=== PATIENT | male | born 1955 | race Caucasian/White ===

== ENCOUNTER 2016-05-01 06:47 | Day surgery (SDC) | payer BC ==
[2016-04-26 14:51] VITALS: BMI 36.9
[~2016-05-01 06:47] MED LIST: LACTATED RINGERS 1,000 ML IV SCH
[2016-05-01 07:02] VITALS: RESP 16; TEMP 98.1
[2016-05-01] MEDS ORDERED: LIDOCAINE 1% 20 ML VIAL (10MG/ML) FOR IV START INTRADERMA ONE (07:09)
--- NOTE | 2016-05-01 08:04 | P.GSHP ---
History of Present Illness H&P Date: 05/01/16 Chief Complaint: Screening colonoscopy This is a 60-year-old male referred from Dr. Arelis godfrey. Patient presents today for screening colonoscopy. He denies any significant GI complaints. - Constitutional Constitutional: Reports as per HPI Past Medical History Past Medical History: GERD/Reflux, Hypertension Additional Past Medical History / Comment(s): upper eye lashes growing into rt eye-following with Dr Dumont,hx wheezing at times History of Any Multi-Drug Resistant Organisms: None Reported Past Surgical History: Orthopedic Surgery Additional Past Surgical History / Comment(s): jay knee arthroscopy,jay carpel tunnel Past Anesthesia/Blood Transfusion Reactions: No Reported Reaction Additional Past Anesthesia/Blood Transfusion Reaction / Comment(s): no hx blood transfusion. Smoking Status: Current some day smoker Past Alcohol Use History: Occasional Additional Past Alcohol Use History / Comment(s): smokes cigars occas for 5-6 yrs,smoked cigarettes approx 20 yrs <1ppd Past Drug Use History: None Reported - Past Family History Mother Additional Family Medical History / Comment(s): heart problems Father History Unknown: Yes Sister(s) Family Medical History: Diabetes Mellitus Medications and Allergies Home Medications Medication Instructions Recorded Confirmed Type Aspirin 81 mg PO DAILY 04/26/16 05/01/16 History Budesonide-Formot 160-4.5 Mcg 2 puff INHALATION BID PRN 04/26/16 05/01/16 History [Symbicort 160-4.5 Mcg Inhaler] Furosemide [Lasix] 40 mg PO BID 04/26/16 05/01/16 History Ibuprofen [Motrin] 800 mg PO Q8H PRN 04/26/16 05/01/16 History Lisinopril 40 mg PO QAM 04/26/16 05/01/16 History Omeprazole [PriLOSEC] 20 mg PO HS 04/26/16 05/01/16 History Terazosin HCl 5 mg PO HS 04/26/16 05/01/16 History Tobramycin 0.3% Ophth Oint [Tobrex 1 applic RIGHT EYE BID 04/26/16 05/01/16 History 0.3% Ophth Oint] Allergies Allergy/AdvReac Type Severity Reaction Status Date / Time No Known Allergies Allergy Verified 04/26/16 14:36 Surgical - Exam Vital Signs Temp Pulse Resp BP Pulse Ox 98.1 F 89 16 171/103 96 05/01/16 06:58 05/01/16 06:58 05/01/16 06:58 05/01/16 06:58 05/01/16 06:58 - General well developed, no distress - Eyes PERRL - ENT normal pinna - Neck no masses - Respiratory normal expansion - Cardiovascular Rhythm: regular - Abdomen Abdomen: soft, non tender Assessment and Plan Plan: We'll perform screening colonoscopy.
[2016-05-01] MEDS ORDERED: PROPOFOL 10 MG/ML 20 ML VIAL IV ONE (08:10)
[2016-05-01] MEDS ORDERED: LIDOCAINE 1% INJ 10MG/ML (20 ML MDV) ONE (08:10)
--- NOTE | 2016-05-01 08:25 | P.OP ---
Date of Procedure: 05/01/16 Preoperative Diagnosis: Screening colonoscopy Postoperative Diagnosis: Normal colon Procedure(s) Performed: Colonoscopy Anesthesia: MAC Surgeon: Jf Beltran Pathology: none sent Condition: stable Disposition: PACU Description of Procedure: PROCEDURE: The patient was placed on the endoscopy table in the lateral position. Digital rectal examination was performed which revealed no abnormalities. The prostate was symmetrical without nodules. Flexible colonoscope was then placed in the patient's anus and passed throughout the entire colon. The ileocecal valve was visualized. The cecum, ascending, transverse, descending and sigmoid colon were normal. The rectum was normal as well. There were no masses, polyps or diverticula noted in the entire colon. SUMMARY OF FINDINGS: Normal colonoscopy.
[2016-05-01 09:11] VITALS: BP 131/90; PULSE 78
== END 2016-05-01 09:28 | disposition home or self-care (01) ==
LOC: ORWHC2ENDO 06:47
PROVIDERS: ATTEND Surgery
DX: Z12.11 Encounter for screening for malignant neoplasm of colon (principal); I10 Essential (primary) hypertension; K21.9 Gastro-esophageal reflux disease without esophagitis; J45.909 Unspecified asthma, uncomplicated; F17.210 Nicotine dependence, cigarettes, uncomplicated; Z79.82 Long term (current) use of aspirin; Z79.51 Long term (current) use of inhaled steroids; Z79.899 Other long term (current) drug therapy
CPT/HCPCS: 45378; J2001; J2704; 99153

== ENCOUNTER → 2021-03-20 | Outpatient (CLI) | payer BC ==
--- NOTE | 2021-03-20 12:09 | P.STRESS ---
- Stress Test Note Stress Test Results/Findings: Exam Performed: NM stress cardiolite complete Exam Date: 03/20/21 Reason for Exam: CHEST PAIN Height: 5 ft 10 in Weight: 120.5 kg Protocol: NICOLE JEAN MARIE Stage: 2 Duration of Exercise: 6:00 Resting Heart Rate: 83 Resting Blood Pressure: 147/96 Maximum Achieved Heart Rate: 147 Maximum Achieved Blood Pressure: 204/60 85% PMHR: 133 100% PMHR: 156 METS: 7.1 Technologist Comment: Stress Test Results/Findings: Patient underwent exercise stress Cardiolite with a Jean Marie protocol treadmill stress test. Patient exercised into Stage 2 for a total of 6 minutes reaching a total of 7.1 METS. Patient's maximum heart rate was 147 which represented 94% age-predicted maximum heart rate. Stress EKG findings: At baseline patient's EKG showed sinus rhythm, normal axis, no significant ST or T wave abnormalities. At peak exercise, EKG showed nondiagnostic 0.[address] depressions in the inferolateral leads. Conclusions: 1. Normal EKG response to exercise without evidence of inducible ischemia. 2. Fair exercise capacity. 3. Nuclear portion to be reported separately.
--- NOTE | 2021-03-20 12:53 | NM ---
EXAMINATION TYPE: NM stress cardiolite complete DATE OF EXAM: 03/20/2021 COMPARISON: NONE HISTORY: R06.00 Dyspnea R07.2 Substernal chest pain TECHNIQUE: After the intravenous administration of 9.9 mCi Tc 99m Sestamibi - Rest images obtained 4 5 minutes post injection. The patient exercised using a JEAN MARIE protocol and 1 minute prior to peak e xercise was injected with 27.1 mCi Tc 99m Sestamibi - Stress images obtained 15 minutes post injectio n. FINDINGS: Targeted heart rate was achieved during performance of the study, patient achieved 94% of predicted m aximal heart rate. Review of stress and rest SPECT images demonstrates decreased uptake along the inf erior wall and inferolateral aspect left ventricle on stress as compared to rest images suggesting de creased uptake also noted along the anteroseptal left ventricle on stress as compared to rest images. Gated analysis shows normal wall motion with an estimated left ventricular ejection fraction of 61 %. IMPRESSION: Stress-induced left ventricular myocardial ischemia is suspected A Yellow level critical message alert has been initiated for Arelis Vaughan DO via the [employer] Critical Results System on 03/20/2021 12:50 PM. This message alert has been sent to Arelis Vaughan DO via the preferences provided by the clinician for the receipt of Radiology Critical Findings. Message ID [id number].
== END | disposition home or self-care (01) ==
LOC: RADNMMAIN 08:56
PROVIDERS: ATTEND Family Medicine
DX: R06.00 Dyspnea, unspecified (principal); R07.2 Precordial pain
CPT/HCPCS: 93017; 78452; A9500

== ENCOUNTER 2021-04-11 09:18 | Day surgery (SDC) | payer BC ==
[2021-04-05 11:57] VITALS: BMI 40.8
[~2021-04-11 09:18] MED LIST changes: +ALPRAZolam 0.25 MG TAB PO PRN; +ALPRAZolam 0.5 MG TAB PO PRN; +ASPIRIN 325 MG TAB PO STA; +ATORVASTATIN 80 MG TAB PO STA; -LACTATED RINGERS 1,000 ML IV SCH; +NITROGLYCERIN SL TABS 0.4 MG TAB SUBLINGUAL PRN; +SODIUM CHLORIDE 0.9% 1,000 ML in EMPTY BAG 1 BAG IV SCH
[2021-04-11] MEDS ORDERED: SODIUM CHLORIDE 0.9% 1,000 ML IV ONE (09:33)
[2021-04-11] MEDS ORDERED: ASPIRIN 81 MG ONE (09:41)
[2021-04-11 09:46] VITALS: RESP 16; TEMP 98.8
[2021-04-11 09:50] LABS: Glucose,Whole Blood 108 mg/dL (75-99)
[2021-04-11] MEDS ORDERED: MIDAZOLAM 2 MG/2 ML VIAL IV ONE (10:27)
[2021-04-11] MEDS ORDERED: LIDOCAINE 1% INJ 10MG/ML (20 ML MDV) SQ ONE (10:30)
[2021-04-11] MEDS ORDERED: HEPARIN SODIUM 1,000 UN/ML (10ML VL) ONE (10:31)
[2021-04-11] MEDS ORDERED: VERAPAMIL SYRINGE (5 MG/10 ML) INTRAARTER ONE (10:32)
[2021-04-11] MEDS ORDERED: IOPAMIDOL-370 125ML BTL INJ ONE (10:42)
--- NOTE | 2021-04-11 10:55 | P.PCN ---
Date of Procedure: 04/11/21 Operative Findings: CARDIAC CATHETERIZATION PERFORMING PHYSICIAN: Gualberto Corcoran MD, RPVI PROCEDURE PERFORMED: 1. Selective right and left coronary angiogram 2. Left heart catheterization INDICATION: This is a 65-year-old gentleman with diabetes and hypertension and dyslipidemia was experiencing symptoms of chest discomfort. He underwent myocardial perfusion imaging stress test and that came in to be abnormal showing reversibility. In the light of that heart catheterization was advised COMPLICATION: None APPROACH: Right radial artery LEVEL OF SEDATION: Moderate with a sedation length of 17 minutes PROCEDURE DESCRIPTION: After obtaining an informed consent, the patient was brought to cardiac corn lab technician. Local anesthesia was performed using lidocaine subcutaneously. The right radial artery was cannulated using Seldinger technique, the guidewire passed easily, following that we advanced a 5-Malagasy sheath dilator assembly, the wire and dilator were removed and sheath was flushed. Following that, 2 mg of verapamil along with 5000 unit heparin were given. Selective right and left coronary angiogram using a 6-Malagasy JR4 and JL 3.5 catheters. Following that we did left heart catheterization using 6-Malagasy pigtail cathet er. The procedure was completed there was no complication. SELECTIVE CORONARY ANGIOGRAM: The right coronary artery: Is a large caliber vessel and a dominant vessel. Its angiographically normal. Distally bifurcates into PDA and PLV branches. Appears to be angiographically normal Left main: Is angiographically normal. Bifurcates into LCx facility The left circumflex: Is a large caliber vessel. Its angiographically normal. It gives rises into a large OM branch which appeared to be angiographically normal. The left anterior descending artery: It is angiographically normal and gives rises into a large diagonal branch which seems to be angiographically normal. HEMODYNAMICS: The LVEDP was about 10-12 mmHg without significant gradient across aortic valve CONCLUSION: 1. Normal coronary angiogram 2. Normal LVEDP POSTPROCEDURE MANAGEMENT: Medical treatment and follow-up with the patient
[2021-04-11 16:21] VITALS: BP 135/87; PULSE 75
== END 2021-04-11 15:05 | disposition home or self-care (01) ==
LOC: CATHCVL 09:18
PROVIDERS: ATTEND Internal Medicine Interventional Cardiology
DX: R07.89 Other chest pain (principal); R94.39 Abnormal result of other cardiovascular function study; E66.9 Obesity, unspecified; Z68.41 Body mass index [BMI] 40.0-44.9, adult; I10 Essential (primary) hypertension; E78.5 Hyperlipidemia, unspecified; Z20.822 Contact with and (suspected) exposure to COVID-19; Z82.49 Family history of ischemic heart disease and other diseases of the circulatory system; E11.9 Type 2 diabetes mellitus without complications; F17.210 Nicotine dependence, cigarettes, uncomplicated; Z79.84 Long term (current) use of oral hypoglycemic drugs; Z79.82 Long term (current) use of aspirin; Z79.51 Long term (current) use of inhaled steroids; Z79.899 Other long term (current) drug therapy
CPT/HCPCS: 93458; 87635; C1769; C1894; J2250; J2001; J1644; Q9967

== ENCOUNTER → 2021-10-06 | Outpatient (CLI) | payer MEDICARE ==
[2021-10-06 10:10] LABS: INR 0.9 (<1.2); Partial Thromboplastin Time 26.7 sec (22.0-30.0); Prothrombin Time 10.3 sec (9.0-12.0)
[2021-10-06 14:37] LABS: HCT 45.7 % (39.6-50.0); HGB 14.8 g/dL (13.0-17.0); MCH 29.7 pg (27.0-32.0); MCHC 32.4 g/dL (32.0-37.0); MCV 91.6 fL (80.0-97.0); Mean Platelet Volume 12.6 fL (9.5-12.2); NRBC Per 100 WBC 0 /100 WBCS (0.0-0.0); Platelet Count 146 X 10*3/uL (140-440); RBC 4.99 X 10*6/uL (4.40-5.60); RDW 12.9 % (11.5-14.5); WBC 7.16 X 10*3/uL (4.50-10.00)
[2021-10-06 15:52] LABS: African American GFR (CKD) 98.3 (60.0-200.0); Albumin 4.3 g/dL (3.8-4.9); Albumin/Globulin Ratio 1.51 (1.60-3.17); Anion Gap 8.3 mmol/L (10.00-18.00); BUN/Creat Ratio 13.44 Ratio (12.00-20.00); Blood Urea Nitrogen 12.7 mg/dL (9.0-27.0); Calcium 9.7 mg/dL (8.7-10.3); Carbon Dioxide 30.7 mmol/L (20.0-27.5); Globulin 2.8 g/dL (1.6-3.3); Non-African American GFR(CKD) 84.8 (60.0-200.0); Total Bilirubin 0.4 mg/dL (0.30-1.20); Total Protein 7.1 g/dL (6.2-8.2)
== END | disposition home or self-care (01) ==
LOC: LABWHC1 08:49
PROVIDERS: ATTEND Orthopaedic Surgery Sports Medicine
DX: Z01.812 Encounter for preprocedural laboratory examination (principal); M17.12 Unilateral primary osteoarthritis, left knee
CPT/HCPCS: 36415; 80053; 85027; 85610; 85730

== ENCOUNTER → 2021-10-09 | Outpatient (CLI) | payer MEDICARE ==
[2021-10-09 14:38] LABS: Appearance,Urine Clear (Clear); Bilirubin,Urine Negative (Negative); Blood,Urine Negative (Negative); Color,Urine Yellow (Yellow); Ketones,Urine Negative (Negative); Nitrite,Urine Negative (Negative); Specific Gravity,Urine 1.007 (1.001-1.030); Urobilinogen,Urine 0.2 (0.2,1.0)
== END | disposition home or self-care (01) ==
LOC: LABPAT 09:42
PROVIDERS: ATTEND Orthopaedic Surgery Sports Medicine
DX: Z01.812 Encounter for preprocedural laboratory examination (principal); M17.12 Unilateral primary osteoarthritis, left knee
CPT/HCPCS: 81003; 87070

== ENCOUNTER → 2022-03-19 | Outpatient (CLI) | payer MEDICARE ==
[2022-03-19 10:07] LABS: Appearance,Urine Clear (Clear); Bilirubin,Urine Negative (Negative); Blood,Urine Negative (Negative); Color,Urine Yellow; Glucose,Urine (UA) Negative (Negative); Ketones,Urine Negative (Negative); Leukocyte Esterase,Urine Negative (Negative); Nitrite,Urine Negative (Negative); Protein,Urine Trace (Negative); Urobilinogen,Urine <2.0 mg/dL (<2.0)
[2022-03-19 10:11] LABS: INR 0.9 (<1.2); Partial Thromboplastin Time 25.8 sec (22.0-30.0); Prothrombin Time 10.1 sec (9.0-12.0)
[2022-03-19 14:31] LABS: HCT 45.2 % (39.6-50.0); HGB 14.5 g/dL (13.0-17.0); MCH 29.7 pg (27.0-32.0); MCHC 32.1 g/dL (32.0-37.0); MCV 92.6 fL (80.0-97.0); Mean Platelet Volume 12.2 fL (9.5-12.2); NRBC Per 100 WBC 0 /100 WBCS (0.0-0.0); Platelet Count 149 X 10*3/uL (140-440); RBC 4.88 X 10*6/uL (4.40-5.60); RDW 12.3 % (11.5-14.5); WBC 6.92 X 10*3/uL (4.50-10.00)
[2022-03-19 14:43] LABS: African American GFR (CKD) 102.3 (60.0-200.0); Albumin 4.2 g/dL (3.8-4.9); Albumin/Globulin Ratio 1.94 (1.60-3.17); Anion Gap 9.1 mmol/L (10.00-18.00); BUN/Creat Ratio 10.22 Ratio (12.00-20.00); Blood Urea Nitrogen 9.3 mg/dL (9.0-27.0); Calcium 9.5 mg/dL (8.7-10.3); Carbon Dioxide 31.1 mmol/L (20.0-27.5); Globulin 2.2 g/dL (1.6-3.3); Non-African American GFR(CKD) 88.3 (60.0-200.0); Potassium 4.4 mmol/L (3.5-5.5); Total Bilirubin 0.5 mg/dL (0.30-1.20); Total Protein 6.3 g/dL (6.2-8.2)
== END ==
LOC: LABWHC1 08:44
PROVIDERS: ATTEND Orthopaedic Surgery Sports Medicine
DX: Z01.812 Encounter for preprocedural laboratory examination (principal); M17.11 Unilateral primary osteoarthritis, right knee
CPT/HCPCS: 36415; 80053; 81003; 85027; 85610; 85730; 87070; 93005

== ENCOUNTER 2022-04-12 05:42 | Day surgery (SDC) | payer MEDICARE ==
[2022-04-06 12:01] VITALS: BMI 39.9
[~2022-04-12 05:42] MED LIST changes: +ACETAMINOPHEN TAB 500 MG TAB PO PRN; -ALPRAZolam 0.25 MG TAB PO PRN; -ALPRAZolam 0.5 MG TAB PO PRN; -ASPIRIN 325 MG TAB PO STA; -ATORVASTATIN 80 MG TAB PO STA; +GABAPENTIN 300 MG CAP PO PRN; +MELOXICAM 7.5 MG TAB PO PRN; -NITROGLYCERIN SL TABS 0.4 MG TAB SUBLINGUAL PRN; +ONDANSETRON 4 MG/2 ML VIAL IVP PRN; -SODIUM CHLORIDE 0.9% 1,000 ML in EMPTY BAG 1 BAG IV SCH; +TRANEXAMIC ACID IN NACL,ISO-OS 1,000 MG in SALINE 1 100ML.BAG IVPB PRN; +ceFAZolin 3 GM in SODIUM CHLORIDE 0.9% 100 ML IVPB PRN
[2022-04-12] MEDS ORDERED: MIDAZOLAM 2 MG/2 ML VIAL IV PRN (05:56)
[2022-04-12] MEDS: LACTATED RINGERS 1,000 ML IV SCH ×3 (05:59→15:32)
[2022-04-12 06:22] LABS: Glucose,Whole Blood 114 mg/dL (70-110)
[2022-04-12] MEDS ORDERED: MIDAZOLAM 2 MG/2 ML VIAL IVP ONE (06:47)
[2022-04-12] MEDS ORDERED: DEXAMETHASONE SOD PHOSPHATE 4 MG/ML 1 ML VIAL ONE (07:07)
[2022-04-12] MEDS ORDERED: PROPOFOL 10 MG/ML 20 ML VIAL IV ONE (07:07)
[2022-04-12] MEDS ORDERED: ePHEDrine 50 MG/ML 1 ML VIAL ONE (07:07)
[2022-04-12] MEDS ORDERED: KETAMINE 10 MG/ML 20 ML VIAL ONE (07:07)
[2022-04-12] MEDS ORDERED: TRANEXAMIC ACID IN NACL,ISO-OS 1,000 MG/100 ML BAG ONE (07:07)
[2022-04-12] MEDS ORDERED: ROPIVACAINE 5 MG/ML 30 ML VIAL ONE (07:07)
[2022-04-12] MEDS ORDERED: SUCCINYLCHOLINE CHLORIDE 200 MG/10 ML VIAL IV ONE (07:07)
[2022-04-12] MEDS ORDERED: LIDOCAINE 2% INJ 20 MG/ML (2 ML VIAL) ONE (07:07)
[2022-04-12] MEDS ORDERED: fentaNYL (PF) 50 MCG/ML 2 ML AMP ONE (07:07)
[2022-04-12] MEDS ORDERED: MIDAZOLAM 2 MG/2 ML VIAL ONE (07:07)
[2022-04-12] MEDS ORDERED: DEXAMETHASONE SOD PHOSPHATE 4 MG/ML 1 ML VIAL IVP ONE (07:09)
[2022-04-12] MEDS ORDERED: ACETAMINOPHEN TAB 325 MG TAB PO PRN (07:18)
[2022-04-12] MEDS ORDERED: NA PHOS,M-B/NA PHOS,DI-BA 133 ML ENEMA RECTAL PRN (07:18)
[2022-04-12] MEDS ORDERED: NALOXONE 0.4 MG/ML 1 ML VIAL IV PRN ×2 (07:18→07:58)
[2022-04-12] MEDS ORDERED: MAGNESIUM HYDROXIDE 2,400 MG/10 ML CUP PO PRN (07:18)
[2022-04-12] MEDS ORDERED: bisacodyL 10 MG SUPP RECTAL PRN (07:18)
[2022-04-12] MEDS ORDERED: HYDROmorphone 0.5 MG/0.5 ML SYRINGE IVP PRN ×3 (07:18)
[2022-04-12] MEDS ORDERED: diazePAM 5 MG TAB PO PRN (07:18)
[2022-04-12] MEDS ORDERED: TEMAZEPAM 15 MG CAP PO PRN (07:18)
[2022-04-12] MEDS ORDERED: ONDANSETRON 4 MG/2 ML VIAL IVP PRN (07:18)
[2022-04-12] MEDS ORDERED: traMADol 50 MG TAB PO PRN (07:18)
[2022-04-12] MEDS ORDERED: HYDROcodone/APAP 7.5-325MG 1 EACH TAB PO PRN (07:21)
[2022-04-12] MEDS ORDERED: ceFAZolin 1,000 MG in SODIUM CHLORIDE 0.9% 1,000 ML IRRIGATION ONE (07:50)
--- NOTE | 2022-04-12 07:58 | P.ANPRN ---
Procedure Note - Anesthesia - Nerve Block Performed Right Adductor Canal Infusion Time Out Performed: Yes Date of Procedure: 04/12/22 Procedure Start Time: 06:46 Procedure Stop Time: 06:54 Location of Patient: PreOp Indication: Acute Post-Operative Pain, Requested by Surgeon Sedation Type: Sedate with meaningful contact maintained Preparation: Sterile Prep, Sterile Dressing Position: Supine Catheter: Indwelling Needle Types: Mateus Needle Gauge: 18 Ultrasound used to visualize needle placement: Yes Ultrasound used to observe medication spread: Yes Injectate: 0.5% Ropivacaine (see comment for volume) (20 ml + decadron 4 mg) Blood Aspirated: No Pain Paresthesia on Injection Noted: No Resistance on Injection: Normal Image Stored and Saved: Yes Events: Uneventful and Well Tolerated Right iPack Single Time Out Performed: Yes Date of Procedure: 04/12/22 Procedure Start Time: 06:55 Location of Patient: PreOp Indication: Acute Post-Operative Pain, Requested by Surgeon Sedation Type: Sedate with meaningful contact maintained Preparation: Sterile Prep, Sterile Dressing Position: Left Lateral Catheter: None Needle Types: Facet Needle Gauge: 20 Ultrasound used to visualize needle placement: Yes Ultrasound used to observe medication spread: Yes Injectate: 0.5% Ropivacaine (see comment for volume) (10 ml + decadron 4 mg) Blood Aspirated: No Pain Paresthesia on Injection Noted: No Resistance on Injection: Normal Image Stored and Saved: Yes Events: Uneventful and Well Tolerated
[2022-04-12] MEDS ORDERED: LACTATED RINGERS 1,000 ML IV ONE (08:07)
[2022-04-12] MEDS ORDERED: ROPIVACAINE 1,100 MG, SODIUM CHLORIDE 0.9% 500 ML 330 ML, EMPTY PAIN BALL 1 EACH MISCELLANE PRN ×2 (10:02)
[2022-04-12 10:08] LABS: Glucose,Whole Blood 161 mg/dL (70-110)
[2022-04-12] MEDS: HYDROmorphone 0.5 MG/0.5 ML SYRINGE IVP PRN ×2 (10:34→11:24)
--- NOTE | 2022-04-12 10:49 | XR ---
EXAMINATION TYPE: XR knee limited RT DATE OF EXAM: 04/12/2022 CLINICAL HISTORY: Postop right knee. TECHNIQUE: Portable AP and crosstable lateral views of the right knee are obtained immediately posto peratively. COMPARISON: None FINDINGS: Metallic hardware from total right knee arthroplasty is seen and appears satisfactory in a lignment and position. There is evidence of recent surgery with subcutaneous gas, soft tissue swelli ng, and joint effusion. Calcific densities in the posterior joint space could also relate to cement, but no priors for comparison. Loose ossific body posterior to the distal femoral metaphysis. IMPRESSION: Immediate postsurgical changes of right total knee arthroplasty with adequate alignment.
--- NOTE | 2022-04-12 11:39 | OP ---
OPERATIVE REPORT PREOPERATIVE DIAGNOSIS: Right knee osteoarthrosis. POSTOPERATIVE DIAGNOSIS: Right knee osteoarthrosis. PROCEDURE PERFORMED: Right total knee arthroplasty. ANESTHESIA: General endotracheal. ESTIMATED BLOOD LOSS: 100 mL. TOURNIQUET TIME: 53 minutes at 250 mmHg. COMPLICATIONS: None apparent. DRAINS: None. DISPOSITION: Postanesthesia care unit. INDICATIONS FOR PROCEDURE: Ryan is a very pleasant 66-year-old male with a longstanding history of right knee pain. History and physical examination are consistent with advanced right knee osteoarthrosis. He has been through significant nonoperative management up to this point. Further treatment options were discussed, and he decided to go forward with the right total knee arthroplasty. The risks of procedure were discussed with him in detail. These risks included but are not limited to risk of infection, nerve damage, bleeding, pain, and a small risk of deep vein thrombosis which could lead to fatal pulmonary embolism. There is also a small risk of loosening of the implant which could require revision operation. The patient understands these risks. All of his questions were answered to his satisfaction. An appropriate informed consent was obtained. DESCRIPTION OF PROCEDURE: The patient was identified in the preoperative holding area. Surgical site was marked by both the patient and myself. He was given 2 g of Ancef IV for prophylactic purposes. He was then transferred to the operative suite. He was placed supine on the operating room table. General anesthetic was then administered and dosed per the Anesthesia Department without apparent complication. An examination under anesthesia was then performed. The patient was 5 to 7 degrees shy of full extension. He had 95 degrees of flexion. The medial collateral ligament, lateral collateral ligament, and posterior cruciate ligaments were stable. A tourniquet was then placed high on the right upper thigh and well-padded in preparation for surgery. The patient's right lower extremity was then prepped and draped in usual sterile fashion. Standard surgical pause was undertaken to ensure that we were operating the correct site and that appropriate preoperative antibiotics had been given. All staff in the room were in agreement, and we proceeded. The outlines of the patella were then marked with a surgical pen. A planned 12 cm vertical incision centered over the patella was marked with a surgical pen. The leg was then exsanguinated with an Esmarch dressing. The knee was then flexed, and the tourniquet was inflated to 250 mmHg. The total tourniquet time for the procedure was 53 minutes. Incision was then made with a 10-blade scalpel. Dissection was carried down sharply overlying the fascia. Great care was taken to minimize the skin flaps. The knee was then exposed using a standard medial parapatellar approach. A small cuff of quadriceps tendon was then left for suturing. He was in a bit of varus preoperatively. A standard medial release was then made. The superficial medial collateral ligament was dissected off the bone around to the posterior aspect of the proximal tibia. The medial meniscus was then excised as well. The lateral meniscus was also released anteriorly. The leg was then externally rotated. The patella was everted. The knee was flexed. Retractors were then placed to protect the collateral ligaments. I then proceeded to remove the infrapatellar fat pad. This was excised sharply tangentially with fibers of the patellar tendon. I then proceeded to remove the peripheral osteophytes. This was done with a rongeur. I then proceeded with distal femoral resection. He did have a small flexion contracture. A planned 11 mm resection was then done. The femoral canal was then entered in the midline of the femur approximately 10 mm anterior to the origin of the posterior cruciate ligament. The guido was then advanced down to the center of the femur, and the guido was placed intramedullary. Based on the preoperative radiographs, the angle between the anatomic and mechanical axis of the femur was approximately 4 to 5 degrees. The valgus angle of the distal femoral cutting guide was then set at 4 degrees for the right knee. The distal femoral cutting guide was then advanced over the intramedullary guido. This was seated firmly against the femur. I then as mentioned planned to take 9 mm off the distal femur. The cutting block was then secured onto the femur with pins. The jig was then removed. The distal femoral cut was made through the slot of the block. The pins were then removed. The distal femoral cutting block was removed. The accuracy of the distal femoral cuts was checked with 2 flat bars. I then proceeded with femoral sizing. Posterior referencing sizing guide was held firmly against the resected distal surface of the femur. The posterior condyles were resting on the posterior plane of the guide. The sizing stylus was then placed onto the anterior femur. The size was measured as a size 10. I then assessed for femoral rotation. The plan was for 3 degrees of external rotation. Three degrees of external rotation was placed onto the jig. These holes were then marked. I then confirmed the rotation by 3 separate methods. This was done using epicondylar axis as well as Whitesides line and posterior referencing. It was deemed that the external rotation was proper. I then went forward and placed the femoral cutting block. This was placed over the previously-placed pin holes. The Santy wing was then placed onto the anterior slots to ensure that we would not notch the anterior femur with the anterior femoral cut. I then proceeded with the anterior femoral cut. This was flush with the anterior cortex of the femur. The posterior cuts were then made followed by the anterior chamfer cut, then the posterior chamfer cut. The cutting block was then removed. Throughout the resection, the collateral ligaments were protected with retractors. I then placed a trial size 10 femur. It fit very nice medial and lateral and fit flush with the distal end of the femur. The drill hole was then made. I then proceeded with the tibial cut. I planned for cruciate-retaining knee. The guide was placed and set for varus valgus and for slope. The height was set for approximately 2 mm resection from the medial tibial plateau, which was the lower side. I was happy with the alignment and the amount of resection. The cutting block was then pinned to the proximal tibia. The alignment guido was removed, and the proximal tibia was resected with a reciprocating saw. Again, this was done with retractors protecting the collateral ligaments. The posterior cruciate ligaments were protected as well. I then proceeded to evaluate the flexion and extension gaps. A 10 mm block was then placed. The flexion and extension gaps were equal. I then proceeded with resection of the posterior osteophytes. He had very minimal posterior osteophytes. This was done using a curved osteotome. This resected the posterior osteophytes, and posterior capsular stripping was done off the posterior aspect of the femur at this time. The osteophytes were then removed. I then proceeded with resection of the patella. The thickness of the patella was measured using the caliper. The thickness was 22 mm. The thickness of the anticipated patellar dome was taken into account. Resection was then performed and confirmed to be equal in 4 quadrants using a caliper. Approximately 14 mm of bone remained after resection. A 35 x 9 mm standard patellar trial was then placed. The holes were drilled, and the trial was then placed. I then proceeded with sizing the tibial plate. A size G tibial plate fit very nicely. I then placed the trial femur, the tibial tray, and the patellar button. A 10 mm trial tibial insert was also placed. The components fit very nicely. He had full extension and flexion. The extension and flexion gaps were equal and stable to both varus and valgus stress. The patella tracked appropriately. The tibial tray rotation was then marked with a Bovie. This was externally rotated properly. I then proceeded with tibial preparation. I first drilled the femoral holes and removed the femoral component. The tibial tray was then set for proper external rotation as well as medial and lateral placement onto the tibia. It was then pinned into place. I then proceeded with punching the keel. I then decided to proceed with cementing of all our components. The knee was thoroughly irrigated with sterile saline solution via pulsed lavage. The lateral genicular artery was identified and cauterized. All blood was removed from the bone of the tibia, femur, and patella with pulsed lavage. I then proceeded with cementing. Two packs of antibiotic bone cement prepared on the back table by formula technician. I then proceeded with cementing of the tibia first. The cement was impacted into the keel as well as deeply seated into the bone. A second coat of cement was then placed. The tibia was then impacted into place. Excess cement was removed with Jacob's and Joker's. I then proceeded with cementing of the femoral component. The femoral component was also cemented using standard technique. Excess cement was removed. A 10 mm trial insert was then placed into the knee. It was brought into full extension with a constant axial load placed until the cement had hardened. The patellar component was then cemented. This was held firmly with a compressive device until the cement had dried. When the cement had dried, the knee was taken out of extension. All excess cement was removed from around the prosthesis. I then trialed the knee with a 10 mm insert. The flexion and extension gaps were appropriate. The knee was stable. It came into full extension. I decided to go forward with a 10 mm Medial Congruent cross-linked cruciate- retaining tibial insert. Polyethylene was then placed onto the tibial tray and locked into place. The knee was then reduced. The knee was again further irrigated with sterile saline solution with antibiotic added. The tourniquet was then deflated. Total tourniquet time for the procedure was 53 minutes at 250 mmHg. Final components were Bernadette Persona size 10 cruciate-retaining femoral component, size G tibial tray, a 10 mm Medial Congruent cruciate-retaining polyethylene insert, and a 35 x 9 mm patella. I then proceeded with closure. Again, the knee was thoroughly irrigated. The quadriceps tendon and the medial retinaculum were reapproximated with #2 Ethibond suture. The extensor mechanism was then closed with a running #2 Quill suture. Subcutaneous tissues were closed with 2-0 Vicryl interrupted suture. The skin was closed with a running 3-0 Quill suture. Dermabond was applied to the incision. Sterile compressive dressings were then applied. All sponge and needle counts were deemed correct prior to closure. The patient tolerated the procedure without apparent complication. He was transferred to recovery room in stable condition. MMODL / VIKTORN: [id number] /
[2022-04-12] MEDS ORDERED: OXYMETAZOLINE 0.05% NASL SPRAY 1 SPRAY BOTTLE EA NOSTRIL PRN (14:52)
[2022-04-12] MEDS ORDERED: DEXTROSE 50% SYRINGE 50 ML IVP PRN ×2 (14:53)
[2022-04-12] MEDS: HYDROcodone/APAP 7.5-325MG 1 EACH TAB PO PRN (15:32)
[2022-04-12] MEDS: ceFAZolin 3 GM in SODIUM CHLORIDE 0.9% 100 ML IVPB SCH ×2 (15:32→21:25)
[2022-04-12] MEDS: PANTOPRAZOLE 40 MG/10 ML VIAL IVP SCH (17:50)
[2022-04-12 17:54] LABS: Glucose,Whole Blood 155 mg/dL (70-110)
[2022-04-12] MEDS: INSULIN ASPART (NovoLOG) 100 UNIT/ML VIAL SQ SCH ×2 (18:35→21:25)
[2022-04-12] MEDS: ASPIRIN 81 MG PO SCH (20:21)
[2022-04-12] MEDS: SYMBICORT 160-4.5 MCG INHALER INHALATION PRN (20:26)
[2022-04-12 20:57] LABS: Glucose,Whole Blood 160 mg/dL (70-110)
[2022-04-12] MEDS ORDERED: SENNOSIDES-DOCUSATE SODIUM 1 EACH TAB PO SCH (21:00)
[2022-04-13 06:34] LABS: Glucose,Whole Blood 125 mg/dL (70-110)
[2022-04-13] MEDS: INSULIN ASPART (NovoLOG) 100 UNIT/ML VIAL SQ SCH ×2 (06:39→12:05)
[2022-04-13] MEDS: LACTATED RINGERS 1,000 ML IV SCH ×3 (06:39→14:34)
[2022-04-13] MEDS: SYMBICORT 160-4.5 MCG INHALER INHALATION PRN (07:07)
--- NOTE | 2022-04-13 08:06 | P.PN ---
Progress Note - Text Progress Note Date: 04/13/22 Patient doing well. Pain 6/10 w/ onQ pump @ 8 ml/hr. R adductor catheter site clean and dry. A/P POD#1 s/p R TKA - doing well
[2022-04-13 08:18] VITALS: RESP 20; TEMP 98.9
[2022-04-13] MEDS ORDERED: IPRATROPIUM-ALBUTEROL 3 ML NEB INHALATION PRN (08:20)
[2022-04-13] MEDS: HYDROcodone/APAP 7.5-325MG 1 EACH TAB PO PRN (08:41)
[2022-04-13] MEDS: PANTOPRAZOLE 40 MG/10 ML VIAL IVP SCH (08:42)
[2022-04-13] MEDS: ASPIRIN 81 MG PO SCH (08:42)
[2022-04-13] MEDS ORDERED: DOXAZOSIN 4 MG TAB PO SCH (09:00)
[2022-04-13] MEDS ORDERED: LOSARTAN 50 MG TAB PO SCH (09:00)
[2022-04-13] MEDS ORDERED: FUROSEMIDE 20 MG TAB PO SCH (09:00)
[2022-04-13] MEDS ORDERED: METOPROLOL SUCCINATE (ER) 50 MG TAB.ER.24H PO SCH (09:00)
[2022-04-13 09:03] LABS: Basophils # (A) 0.02 X 10*3/uL (0.00-0.10); Basophils % (A) 0.1 %; Eosinophils # (A) 0.01 X 10*3/uL (0.04-0.35); Eosinophils % (A) 0.1 %; HCT 39.4 % (39.6-50.0); HGB 12.9 g/dL (13.0-17.0); Immature Grans, Automated 0.4 %; Lymphocytes # (A) 1.59 X 10*3/uL (0.90-5.00); Lymphocytes % (A) 11.5 %; MCH 30.1 pg (27.0-32.0); MCHC 32.7 g/dL (32.0-37.0); MCV 91.8 fL (80.0-97.0); Mean Platelet Volume 12.6 fL (9.5-12.2); Monocytes # (A) 1.17 X 10*3/uL (0.20-1.00); Monocytes % (A) 8.5 %; NRBC Per 100 WBC 0 /100 WBCS (0.0-0.0); Neutrophils % (A) 79.4 %; Platelet Count 130 X 10*3/uL (140-440); RBC 4.29 X 10*6/uL (4.40-5.60); RDW 12.5 % (11.5-14.5); WBC 13.84 X 10*3/uL (4.50-10.00)
--- NOTE | 2022-04-13 11:20 | P.CONS ---
History of Present Illness - Reason for Consult Consult date: 04/13/22 Medical management hypertension, diabetes mellitus, COPD Requesting physician: Lauri Ceja - Chief Complaint Right knee pain, osteoarthrosis Status post right total knee arthroplasty - History of Present Illness Is a pleasant 66-year-old gentleman with past medical history of COPD, diabetes mellitus, gastroesophageal reflux disease, hypertension, sleep apnea, former nicotine dependence ,ongoing right knee pain/osteoarthrosis, failed conservative treatment, status post right total knee arthroplasty. Tolerated procedure well. Ambulating with walker, tolerating exertion well, denies lightheadedness, dizziness or focal deficits. Positive pain, currently controlled. Positive diet intake, denies nausea vomiting or diarrhea. Passing flatus. Currently maintaining O2 sats in the low 90s on room air. Hypertensive.Denies chest pain, palpitations or shortness of breath. Afebrile. Review of Systems Constitutional: Denied any fatigue denied any fever. Cardio vascular: denied any chest pain, palpitations Gastrointestinal denied any nausea vomiting Pulmonary: Denied any shortness of breath cough Neurologic denied any new focal deficits ROS Statement: Those systems with pertinent positive or pertinent negative responses have been documented in the HPI. ROS Other: All systems not noted in ROS Statement are negative. Past Medical History Past Medical History: COPD, Diabetes Mellitus, GERD/Reflux, Hyperlipidemia, Hypertension, Osteoarthritis (OA), Sleep Apnea/CPAP/BIPAP Additional Past Medical History / Comment(s): hx wheezing at times, seasonal allergies History of Any Multi-Drug Resistant Organisms: None Reported Past Surgical History: Adenoidectomy, Heart Catheterization, Orthopedic Surgery, Tonsillectomy Additional Past Surgical History / Comment(s): jay knee arthroscopy,jay carpel tunnel, right eye surg., colonoscopy, ruptured bowel repair around 5/6 years old Past Anesthesia/Blood Transfusion Reactions: No Reported Reaction Additional Past Anesthesia/Blood Transfusion Reaction / Comm: no hx blood tra nsfusion. Past Psychological History: No Psychological Hx Reported Smoking Status: Former smoker Past Alcohol Use History: Occasional Additional Past Alcohol Use History / Comment(s): STARTED SMOKING AT AGE 17 QUIT smokes cigars occas for 5-6 yrs,smoked cigarettes QUIT AT AGE 46 SMOKED 1PPD, occasional cigar still, Past Drug Use History: None Reported - Past Family History Mother Family Medical History: CVA/TIA Additional Family Medical History / Comment(s): heart problems Father History Unknown: Yes Family Medical History: Diabetes Mellitus Additional Family Medical History / Comment(s): Father of a brain aneurysm Sister(s) Family Medical History: Diabetes Mellitus Medications and Allergies Home Medications Medication Instructions Recorded Confirmed Type Aspirin 81 mg PO Q48H 04/26/16 04/12/22 History Budesonide-Formot 160-4.5 Mcg 2 puff INHALATION BID PRN 04/26/16 04/12/22 History [Symbicort 160-4.5 Mcg Inhaler] Furosemide [Lasix] 20 mg PO BID 04/26/16 04/12/22 History Omeprazole [PriLOSEC] 40 mg PO HS 04/26/16 04/12/22 History Terazosin HCl 5 mg PO BID 04/26/16 04/12/22 History Atorvastatin [Lipitor] 20 mg PO HS 04/05/21 04/12/22 History Metoprolol Succinate [Toprol XL] 50 mg PO DAILY 04/05/21 04/12/22 History metFORMIN HCL [Glucophage] 500 mg PO BID 04/05/21 04/12/22 History Losartan Potassium [Cozaar] 100 mg PO DAILY 04/06/22 04/12/22 History Oxymetazoline HCl [Vicks Sinex] 1 spray EA NOSTRIL DAILY PRN 04/09/22 04/12/22 History Allergies Allergy/AdvReac Type Severity Reaction Status Date / Time No Known Allergies Allergy Verified 04/12/22 05:59 Physical Exam Vitals: Vital Signs Temp Pulse Pulse Resp BP Pulse Ox 04/13/22 07:31 98.9 F 95 20 161/111 91 L 04/13/22 02:06 98.3 F 85 14 152/90 95 04/12/22 19:31 98.1 F 106 H 15 131/83 93 L 04/12/22 15:13 93 L 04/12/22 13:51 97.6 F 91 16 149/89 90 L 04/12/22 12:30 90 16 137/74 94 L 04/12/22 12:00 85 16 133/76 99 04/12/22 11:30 89 16 127/70 98 04/12/22 11:15 89 16 117/67 98 Intake and Output 04/12/22 04/13/22 04/13/22 22:59 06:59 14:59 Intake Total 236 1660 Balance 236 1660 Intake: Intake, IV Titration 700 Amount Lactated Ringers 1,000 ml 600 @ 100 mls/hr IV .Q10H YESSENIA Rx#:[id number] ceFAZolin 3 gm In Sodium 100 Chloride 0.9% 100 ml @ 200 mls/hr IVPB Q8H YESSENIA Rx#:[id number] Oral 236 960 Other: # Voids 1 3 PHYSICAL EXAM: VITAL SIGNS: As above GENERAL: Pleasant 66-year-old gentleman well-nourished, sitting up in bed, no acute distress HEENT: Conjunctivae normal. eyes normal. Oral mucosa moist. NECK: No JVD. No thyroid enlargement. No LNs CARDIOVASCULAR: S1, S2 regular.. No murmur RESPIRATION: Breath sounds diminished in the bases. No rhonchi or crackles. No bronchial breathing. ABDOMEN: Soft, nontender . No guarding. no masses palpable. No ascites, No hepatosplenomegaly.Bowel sounds heard. LEGS: Right lower extremity dressing clean dry and intact, trace edema, no calf pain, positive DP pulse. PSYCHIATRY: Alert and oriented X3, mood and affect normal. NERVOUS SYSTEM: Cranial N 2-12 grossly normal. No focal deficits. Strength and sensation grossly intact.. Skin: Warm and dry no rash . Results CBC & Chem 7: 04/13/22 05:30 Labs: Abnormal Lab Results - Last 24 Hours (Table) 04/12/22 04/12/22 04/13/22 Range/Units 17:53 20:56 05:30 WBC (4.50-10.00) X 10*3/uL RBC (4.40-5.60) X 10*6/uL Hgb (13.0-17.0) g/dL Hct (39.6-50.0) % Plt Count (140-440) X 10*3/uL MPV (9.5-12.2) fL Immature Gran # (0.00-0.04) X 10*3/uL Neutrophils # (1.80-7.70) X 10*3/uL Monocytes # (0.20-1.00) X 10*3/uL Eosinophils # (0.04-0.35) X 10*3/uL POC Glucose (mg/dL) 155 H 160 H (70-110) mg/dL Hemoglobin A1c 6.3 H (0.0-6.0) % 04/13/22 04/13/22 Range/Units 05:30 06:32 WBC 13.84 H (4.50-10.00) X 10*3/uL RBC 4.29 L (4.40-5.60) X 10*6/uL Hgb 12.9 L (13.0-17.0) g/dL Hct 39.4 L (39.6-50.0) % Plt Count 130 L (140-440) X 10*3/uL MPV 12.6 H (9.5-12.2) fL Immature Gran # 0.05 H (0.00-0.04) X 10*3/uL Neutrophils # 11.00 H (1.80-7.70) X 10*3/uL Monocytes # 1.17 H (0.20-1.00) X 10*3/uL Eosinophils # 0.01 L (0.04-0.35) X 10*3/uL POC Glucose (mg/dL) 125 H (70-110) mg/dL Hemoglobin A1c (0.0-6.0) % Assessment and Plan Assessment: Right knee osteoarthrosis, failed conservative treatment, status post right total knee arthroplasty Morbid obesity, BMI 41.3 COPD Sleep apnea, right wears CPAP, BiPAP Gastroesophageal reflux disease Former nicotine dependence Hypertension Hyperlipidemia Plan: Continue on current medication regime ,monitoring and symptomatic treatment. Home meds have been reviewed and resumed including antihypertensives. Close monitoring of blood pressure with recheck of vital signs pending. Close monitoring of Accu-Cheks, with insulin sliding scale currently in place. PPI for GI prophylaxis. DVT prophylaxis and pain management as per primary. Aggressive pulmonary toileting with incentive spirometer reinforced, nebulized b ronchodilators and Symbicort. PT. Follow-up with Dr. Vaughan, PCP in [address] Ceja for the consult. The impression and plan of care has been dictated as directed. : I performed a history and examination of this patient, discussed the same with the dictator. I agree with the dictator's note ,documented as a scribe. Any additional findings or plans will be noted.
[2022-04-13 11:42] VITALS: BP 122/76; PULSE 86
[2022-04-13 11:57] LABS: Glucose,Whole Blood 115 mg/dL (70-110)
[2022-04-13] MEDS ORDERED: IPRATROPIUM-ALBUTEROL 3 ML NEB INHALATION SCH (12:00)
[2022-04-13] MEDS ORDERED: MULTIVITAMINS, THERA 1 EACH TAB PO SCH (12:00)
[2022-04-14] MEDS ORDERED: PANTOPRAZOLE 40 MG TABLET PO SCH (07:30)
== END 2022-04-13 14:27 | disposition home health service (06) ==
LOC: OR 05:42 → 4SSUR 09:11 → OR 04-13 14:27
PROVIDERS: ATTEND Orthopaedic Surgery Sports Medicine
DX: M17.11 Unilateral primary osteoarthritis, right knee (principal); G89.18 Other acute postprocedural pain; I10 Essential (primary) hypertension; E78.5 Hyperlipidemia, unspecified; R73.03 Prediabetes; L98.9 Disorder of the skin and subcutaneous tissue, unspecified; F10.90 Alcohol use, unspecified, uncomplicated; Z98.890 Other specified postprocedural states; Z83.3 Family history of diabetes mellitus; Z82.49 Family history of ischemic heart disease and other diseases of the circulatory system; Z87.891 Personal history of nicotine dependence; Z79.82 Long term (current) use of aspirin; Z79.899 Other long term (current) drug therapy; Z79.84 Long term (current) use of oral hypoglycemic drugs
CPT/HCPCS: 94640 ×2; 94760; 97161; 64999; 64448; 76942; 85025; 88300; 83036; 73560; 27447; C1776; C1751; J2250; J1100; J0690 ×2; J2405; J2795; C9113 ×2; J1170

== ENCOUNTER → 2024-09-10 | Outpatient (CLI) | payer MEDICARE ==
--- NOTE | 2024-09-10 13:58 | CTL ---
EXAMINATION TYPE: CT Low Dose Lung DATE OF EXAM: 09/10/2024 9:16 AM COMPARISON: None. CLINICAL INDICATION: Male, 68 years old with history of Z12.2 ENCNTR SCREEN FO Z87.891 NICOTINE DEPEN DENCE, pt no longer smokes but smoked 1 pack per day x 30 yrs, History of tobacco use. TECHNIQUE: Low dose computed tomography scan was performed through the chest at 1 mm thick sections a nd reconstructed images in multiple planes at 1 mm and [address] DLP: 97.7 mGycm, CT CTDI: 2.6 mGy, Automated exposure control for dose reduction was used. CT DIAGNOSTIC QUALITY: Satisfactory FINDINGS: The heart is upper limits of normal in size without pericardial effusion. No coronary artery calcific ations are seen. Ectatic ascending aorta 3.9 cm. 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 No thoracic lymph adenopathy by CT size criteria. Mild to moderate diffuse bronchial wall thickening. Strandy atelectasis/scarring in the lower lungs. No consolidation or pleural effusion. No suspicious pulmonary nodule is identified. Visualized upper abdomen shows low attenuation of the hepatic parenchyma suggesting fatty infiltratio n. A few small gallstones measuring up to 9 mm are noted. Spleen upper limits of normal in size at 13 .0 cm. Bones: No osseous destructive process. IMPRESSION: 1. Lung RADS 1, negative. No suspicious pulmonary nodules. 2. Mild bronchial wall thickening suggests bronchitis or chronic asthma. 3. Incidental: Hepatic steatosis for which further appropriate clinical management is advised. Cholel ithiasis. CT LUNG RAD AND CT CHEST RECOMMENDATION: Lung-Rad 1 Negative: Continue annual screening with LDCT in 12 months. S Modifier (other clinically significant findings): None [facility], Workstation: [id number], 09/10/2024 1:55 PM
== END | disposition home or self-care (01) ==
LOC: RADCTMAIN 08:55
PROVIDERS: ATTEND Family Medicine
DX: Z12.2 Encounter for screening for malignant neoplasm of respiratory organs (principal); J98.09 Other diseases of bronchus, not elsewhere classified; K76.0 Fatty (change of) liver, not elsewhere classified; K80.20 Calculus of gallbladder without cholecystitis without obstruction; Z87.891 Personal history of nicotine dependence
CPT/HCPCS: 71271